=== PATIENT | female | born 1940 | race Caucasian/White ===

== ENCOUNTER 2016-05-09 13:05 | Inpatient (IN) | payer MEDICARE ==
--- NOTE | ~2016-05-09 | HP ---
Unit #: [id number] #: [id number] Patient: FELICITAS CHAND [id number] [address] [address] [id number] I MR#: [id number] NAME: FELICITAS CHAND. ROOM: 13422 Age: 76 Sex: F Admission Date: 05/09/2016 : 1940 Attending Physician: Giuseppe Stallworth M.D. Primary Care Physician: Chai Demarco M.D. HISTORY AND PHYSICAL ADMISSION DIAGNOSES 1. Acute hypoxemic respiratory failure. 2. Acute bronchitis. 3. History of CVA. 4. History of AFib. 5. History of CHF. 6. Hypertension. 7. Acute exacerbation of COPD. 8. History of peripheral vascular disease status post right carotid endarterectomy with patch. HISTORY OF PRESENT ILLNESS Ms. Felicitas Chand is a 76-year-old female with a past medical history of CVA, CHF, AFib, hypertension, peripheral vascular disease and COPD, who comes to the emergency room with the complaints of increasing weakness and cough along with some occasional nausea with some flu-like body aches for the last several days. Initial evaluation in the ER found patient with O2 sats of 86%. Flu was negative so was chest x-ray. Her white count was 13,000 and lactic acid was normal. The patient is being admitted for acute bronchitis along with the acute exacerbation of COPD and hypoxemic respiratory failure. She denies any chest pain. She denies any headache, dizziness, vomiting or diarrhea. The patient denies any abdominal pain. So, a 12-point review of systems on this patient basically negative except as above. PAST MEDICAL HISTORY History of AFib, history of CHF, history of CVA in the past, history of COPD, history of peripheral vascular disease, history of hypertension, dyslipidemia. She is a reformed smoker. PAST SURGICAL HISTORY Bilateral carotid endarterectomy, hysterectomy, fusion x2. FAMILY HISTORY Unremarkable. ALLERGIES Benazepril and sulfa. HOME MEDICATIONS I do not have in front of me but this will be clarified with the pharmacy and the patient will be restarted accordingly. PHYSICAL EXAMINATION Unit #: [id number] #: [id number] Patient: FELICITAS CHAND GENERAL APPEARANCE: She is a 76-year-old female, not in acute distress. VITAL SIGNS: BP 98/43. Heart rate 80. Respirations 17. Temperature 99.8. HEENT: Head is atraumatic. Pupils equal, round and reactive to light and accommodation. Extraocular muscles intact. Oropharynx clear. NECK: Supple. No mass. No JVD. No bruits. CHEST: Bilateral rhonchi. CARDIOVASCULAR: S1, S2. No murmurs. ABDOMEN: Soft, nontender, nondistended. EXTREMITIES: Lower extremities without any cyanosis, clubbing or edema. NEUROLOGIC: Patient grossly intact. No focal new deficits. DIAGNOSTIC STUDIES LABORATORY: White count 13,000. Chemistry significant for blood glucose of 125, GFR 42.1, sodium 134. IMAGING: Chest x-ray negative. ASSESSMENT AND PLAN 1. Acute hypoxemic respiratory failure. 2. Acute bronchitis versus community-acquired pneumonia. 3. Acute exacerbation of COPD. 4. History of AFib. 5. History of CHF. 6. Hypertension. 7. History of peripheral vascular disease status post bilateral carotid endarterectomy. 8. Acute kidney injury with questionable CKD. PLAN Continue DuoNeb q.4 hours. Start IV Levaquin. Ask Pharmacy to dose. Pulmonary consult with Dr. Clay who has seen the patient before. Also, we will gently hydrate. Followup on a.m. chemistry. Consider Nephrology evaluation. We will get the CT of the chest without contrast. Rule out pneumonia. Continue current O2. Keep O2 sats above 90. GI and DVT prophylaxis with some PPI and the patient is on Eliquis chronically. Dictated by Bk Duque/tanner TD: 05/09/2016 15:06 JOB #: [id number] HISTORY AND PHYSICAL X Giuseppe Stallworth MD HISTORY AND PHYSICAL
--- NOTE | ~2016-05-09 | EKG ---
PATIENT: FELICITAS RETANA UNIT #: [id number] Ventricular Rate: 74 BPM Atrial Rate: 74 BPM P-R Interval: 142 ms QRS Duration: 84 ms Q-T Interval: 426 ms QTC Calculation(Bezet): 472 ms P [place]: 37 degrees Calculated R [place]: -5 degrees Calculated T [place]: 2 degrees Diagnosis Line: Normal sinus rhythm Diagnosis Line: Normal ECG Diagnosis Line: When compared with ECG of 19-JUN-2014 12:28, Diagnosis Line: Vent. rate has decreased BY 37 BPM Diagnosis Line: Confirmed by JUAN FRANCISCO ESQUIVEL MD ([id number]) on 05/10/2016 Diagnosis Line: 7:02:41 AM INTERPRETING MD: ALVIN FERNANDEZ
--- NOTE | ~2016-05-09 | DS ---
Unit #: [id number] #: [id number] Patient: FELICITAS RETANA [id number] [place], [place] [address] [id number] I MR#: [id number] NAME: FELICITAS RETANA ROOM: 569 Age: 76 Sex: F Admission Date: 05/09/2016 : 1940 Discharge Date: 05/12/2016 Attending Physician: Giuseppe Stallworth M.D. Primary Care Physician: Chai Demarco M.D. DISCHARGE SUMMARY FINAL DIAGNOSES 1. Acute hypoxic respiratory failure, which is resolved. 2. Acute chronic obstructive pulmonary disease exacerbation. 3. Acute bronchitis. 4. Hypertension. 5. History of atrial fibrillation, on chronic anticoagulation therapy. 6. History of cerebrovascular accident. 7. Peripheral vascular disease status post right carotid endarterectomy with patch. 8. Reformed smoker. DISCHARGE MEDICATIONS 1. Medrol Dosepak. 2. Mucinex 600 mg p.o. b.i.d. 3. Hydralazine 25 mg b.i.d. 4. Continue rest of home medications. CONSULTATIONS DURING HOSPITALIZATION Dr. Mathew Anderson from pulmonary services. DIAGNOSTIC STUDIES LAB WORKUP ON DISCHARGE: Blood cultures are negative. BMP shows sodium 138, potassium 4.2, chloride 106, bicarb 23, BUN 26, creatinine 1.1. CBC shows WBC of 14, hemoglobin 10.2, hematocrit 31.7, platelet count 189. Lactic acid 1. Influenza A and B negative. IMAGING: CT scan of the chest was done on 05/09, which shows no acute findings. No active disease. Mild atelectasis in the posterior lower lobe. Emphysema in the bilateral upper lobes. No adenopathy. Small hiatal hernia was seen. HOSPITAL COURSE Felicitas is a 76-year-old female who was admitted [facility] to telemetry unit by my colleague, Dr. Stallworth, with acute hypoxic respiratory failure, acute bronchitis and acute COPD exacerbation. The patient had increasing weakness and cough, along with some nausea. Influenza was ruled out. The patient's oxygen in the ER was 86%. The patient's chest x-ray was negative for any pneumonia. The patient was started on IV Solu-Medrol, nebulizer treatment, bronchodilators. Dr. Anderson was consulted, and CT scan was done. Results are as above. The patient is doing very well at this time. Hypoxia has resolved, and her lungs are sounding much better. Her weakness has improved. The patient will be discharged home on above medications. Unit #: [id number] #: [id number] Patient: FELICITAS RETANA DISCHARGE PHYSICAL EXAMINATION VITAL SIGNS: Blood pressure 180/72, respiratory rate 18, pulse 69, temperature 98.4. RESPIRATORY: Chest has fair air entry bilaterally. CVS: S1, S2 positive. ABDOMEN: Soft. EXTREMITIES: Negative edema. DISCHARGE INSTRUCTIONS 1. Follow up with primary care provider in 1 week. 2. Check blood pressure at home and take log to primary care provider. 3. CBC to be done in 1 week to evaluate leukocytosis, which is most likely secondary to steroids. 4. Plan of care has been discussed with the patient at length. She does verbalize understanding. Dictated by... Marion Turner M.D. Jeff TD: 05/14/2016 07:58 JOB #: [id number] DISCHARGE SUMMARY X Marion Turner MD X DISCHARGE SUMMARY
--- NOTE | ~2016-05-09 | CR72 ---
[facility] A Service of [facility] & [facility] RADIOLOGY TEXT RESULTS PATIENT: FELICITAS RETANA LOCATION: [facility] 569-01 : [birth year] UNIT #: [id number] AGE: [address]: Giuseppe Stallworth MD SEX: F ORDER DR: [id number] [facility] [address] [place], [place] [address] [id number] I MR#: [id number] Acc #: [id number] NAME: FELICITAS RETANA : 1940 SEX: F STUDY DATE/TIME: 05/09/2016 12:06 UNIT: [facility] ROOM: [facility] STUDY DESCRIPTION: CR Chest Single View Portable Attending Physician: Giuseppe Stallworth M.D. Ordering Physician: Florian Alvarado M.D. Primary Care Physician: Chai Demarco M.D. MEDICAL IMAGING REPORT This report is preliminary unless electronic signature is present EXAM Chest x-ray 05/09/2016. HISTORY 76-year-old female in the ED complaining of shortness of air, weakness, cough, fatigue and congestion. Symptoms began yesterday. TECHNIQUE AP portable upright chest x-ray. FINDINGS The exam shows no active disease in the chest. Mild stable cardiomegaly. Mild scarring or atelectasis in lung bases. No acute pulmonary infiltrate or pleural effusion. No change since 06/19/2014. IMPRESSION No active disease. No change since 06/19/2014. Dictated by... Carlos Cheung M.D. THIS IS AN ELECTRONICALLY VERIFIED REPORT Carlos Cheung M.D. at 05/10/2016 8:40 AM JUAN/gonzalo TD: 05/09/2016 19:10 JOB #: [id number] MEDICAL IMAGING REPORT COPY
--- NOTE | ~2016-05-09 | CT57 ---
[facility] A Service of [facility] & [facility] RADIOLOGY TEXT RESULTS PATIENT: FELICITAS RETANA [facility]: [facility] [address] : [birth year] UNIT #: [id number] AGE: [address]: Giuseppe Stallworth MD SEX: F ORDER DR: [id number] [facility] [address] [place], [place] [address] [id number] I MR#: [id number] Acc #: [id number] NAME: FELICITAS RETANA. : 1940 SEX: F STUDY DATE/TIME: 05/09/2016 16:05 [facility]IT[facility]OM[facility] STUDY DESCRIPTION: CT Chest Wo Cont Attending Physician: Giuseppe Stallworth M.D. Ordering Physician: Giuseppe Stallworth M.D. Primary Care Physician: Chai Demarco M.D. MEDICAL IMAGING REPORT This report is preliminary unless electronic signature is present EXAM CT chest without contrast HISTORY Hypoxia for 2 days. Shortness of air. Bronchitis. TECHNIQUE This CT exam was performed with one or more of the following radiation dose reduction techniques: automatic exposure control, adjustment of mA and/or kV according to patient size, and iterative reconstruction. FINDINGS CT chest without contrast demonstrates minimal atelectasis in the posterior lower lobes. Mild emphysema in the bilateral upper lobes. Mild nodular scarring in the inferolateral right upper lobe is unchanged compared to 04/01/2014. Small hiatal hernia. Calcified mediastinal and left hilar nodes. No adenopathy. Normal caliber thoracic aorta. No pericardial thickening or effusion. Small cyst in the upper pole of the right kidney. IMPRESSION 1. No acute findings. No active disease. Mild atelectasis in the posterior lower lobes. Emphysema in the bilateral upper lobes. 2. No adenopathy. 3. Small hiatal hernia. Dictated by... Jez Edmondson M.D. THIS IS AN ELECTRONICALLY VERIFIED REPORT Jez Edmondson M.D. at 05/10/2016 3:20 PM CHASTITY/milvia STS. [facility] A Service of [facility] & [facility] RADIOLOGY TEXT RESULTS PATIENT: FELICITAS RETANA [facility] 569-01 : 38 UNIT #: [id number] AGE: [address]: Giuseppe Stallworth MD SEX: F ORDER DR: TD: 05/10/2016 09:10 JOB #: [id number] MEDICAL IMAGING REPORT COPY
--- NOTE | ~2016-05-09 | CO ---
Unit #: [id number] #: [id number] Patient: FELICITAS RETANA [id number] [place], [place] [address] [id number] I MR#: [id number] NAME: FELICITAS RETANA. ROOM: 569 Age: 76 Sex: F Admission Date: 05/09/2016 : 1940 Attending Physician: Giuseppe Stallworth M.D. Primary Care Physician: Chai Demarco M.D. Consultation Date: 05/09/2016 CONSULTATION REPORT REASON FOR CONSULT Hypoxia. HISTORY OF PRESENT ILLNESS This is a very pleasant 76-year-old female with a past medical history significant for hypertension, congestive heart failure, A-fib and stroke, who presented to the emergency room with complaints of profound weakness. The patient is oriented x3. However, she (1) easily while she is giving the story. Her story was inconsistent at times but apparently she was having some flu-like symptoms with cough and some low grade fever. She was feeling more dyspneic than usual and she was having some body aches. She denied any nausea, vomiting or diarrhea. She denied any chest pain. In the emergency room, the patient's saturation was found in the mid 80s on room air. She was tested negative for the flu and her chest x-ray showed no acute infiltrate. The patient doesn't wear oxygen at home and she doesn't smoke. PAST MEDICAL HISTORY 1. A-fib. 2. Congestive heart failure. 3. CVA. 4. COPD. 5. Peripheral vascular disease. 6. Hypertension. 7. Hyperlipidemia. PAST SURGICAL HISTORY 1. Bilateral carotid endarterectomy. 2. Hysterectomy. 3. Fusion x2. FAMILY HISTORY Hypertension. ALLERGIES Sulfa and benazepril. HOME MEDICATIONS Nursing are in the process of obtaining medications from her pharmacy. Unit #: [id number] #: [id number] Patient: FELICITAS RETANA PHYSICAL EXAMINATION GENERAL: The patient is pleasant, in no acute distress. VITAL SIGNS: Blood pressure 105/51, heart rate 83, respiratory rate 19, temperature 99.5. HEENT: Atraumatic, normocephalic. PERRLA, EOMI. NECK: Supple. No JVD, no lymphadenopathy. CHEST: Bilateral rhonchi and a few wheezing. HEART: S1, S2. No murmur, ABDOMEN: Soft, nontender. Bowel sounds positive. No hepatosplenomegaly. EXTREMITIES: No edema or cyanosis. SKIN: No rashes. TELESALES SPECIALIST: Awake, alert, oriented x3. No focal motor/sensory deficit. DIAGNOSTIC STUDIES LABORATORY: Creatinine 1.3, sodium 134, white blood count 13.5, hemoglobin 10.9. IMAGING: Chest x-ray - no acute infiltrate. ASSESSMENT 1. Acute hypoxic respiratory failure. 2. Acute exacerbation of chronic obstructive pulmonary disease. 3. Hypertension. 4. Congestive heart failure. 5. Atrial fibrillation. 6. Peripheral vascular disease. PLAN 1. The patient will be continued on oxygen and she will be titrated down as possible. 2. IV steroids and bronchodilators. 3. IV Levaquin, pneumonia dose, pending CT chest results. 4. No need for IV fluids. 5. Will test for the flu and other respiratory pathogens panel. 6. DVT prophylaxis. Dictated by... Bk Ambriz TD: 05/10/2016 05:14 JOB #: [id number] CONSULTATION REPORT X BELLA MARCANO MD X CONSULTATION REPORT
[2016-05-09 12:24] LABS: POC - CKMB 1.4 ng/mL (0.0-7.9); POC - TROPONIN <0.05 ng/mL (<=0.05)
[2016-05-09 12:28] LABS: BASOPHIL# 0.1 X10e3 (0-0.3); BASOPHIL% 0.4 % (0-2.5); HEMATOCRIT 33.9 % (35.0-45.0); HEMOGLOBIN 10.9 gm/dL (12.0-16.0); LYMPHOCYTE# 1.1 X10e3 (1.0-3.5); LYMPHOCYTE% 8.2 % (17.0-45.0); MEAN CELL VOLUME 85.6 FL (83-96); MEAN CORPUSCULAR HEMOGLOBIN 27.6 PG (28-34); MEAN CORPUSCULAR HGB CONC 32.2 g/dL (30-36); MEAN PLATELET VOLUME 9.6 FL (6.5-11.5); MONOCYTE# 1.2 X10e3 (0-1.0); MONOCYTE% 8.8 % (3.0-12.0); NEUTROPHIL# 11.2 X10e3 (1.5-7.1); NEUTROPHIL% 82.6 % (40-75); PLATELET COUNT 226 X10e3 (140-420); RED BLOOD COUNT 3.96 X10e (3.90-5.30); RED CELL DISTRIBUTION WIDTH 14.4 % (11.0-15.5); WHITE BLOOD COUNT 13.5 X10e3 (4.0-10.5)
[2016-05-09 12:32] LABS: DIFF IND NO
[2016-05-09 12:42] LABS: INFLUENZA A NEG (NEG); INFLUENZA B NEG (NEG)
[2016-05-09 13:01] LABS: ALBUMIN SERUM 3.7 g/dL (3.5-5.0); BILIRUBIN, DIRECT 0.2 mg/dL (0.0-0.2); BILIRUBIN,INDIRECT 0.5 mg/dL (0.0-0.9); BILIRUBIN,TOTAL 0.7 mg/dL (0.2-2.0); BUN/CREATININE RATIO 15.38; CALCIUM SERUM 9.4 mg/dL (8.4-10.2); CREATININE SERUM 1.3 mg/dL (0.6-1.4); GLOM FILT RATE Estimated 42.1 mL/min (>60); PROTEIN TOTAL SERUM 6.9 g/dL (6.0-8.3)
[~2016-05-09 13:05] MED LIST: AMBIEN PO; AMIODARONE HCL400 MG PO; APRESOLINE PO; APRESOLINE10 M1 PO; ASPIRIN PO; ASPIRIN81 MG PO; COLACE PO; COMBIVENT MININEB INH; COUMADIN2.5 MG PO; FLEXERIL PO; HCTZ PO; HYDRALAZINE HC100 MG PO; K-DUR20 ME2 PO; LIPITOR PO; LIPITOR80 MG PO; LORTAB 2.5/5001 TAB PO; LOVENOX PO; LOW DOSE ASPIRI81 M1 PO; LOZOL PO; LOZOL2.5 M1 PO; METOPROLOL TART25 MG PO; NASONEX17 GM; NORVASC PO; PERCOCET 10/3251 TAB PO; PERCOCET 5/321 UDTAB PO; PLAVIX PO; TOPROL XL PO; TYLENOL325 M1 PO; ZOFRAN PO; ZOLOFT PO; ZYRTEC10 M2 PO
[2016-05-09] MEDS ORDERED: PANTOPRAZOLE SO40 MG PO (13:27)
[2016-05-10 06:31] LABS: BASOPHIL% 0.1 % (0-2.5); HEMATOCRIT 31.7 % (35.0-45.0); HEMOGLOBIN 10.2 gm/dL (12.0-16.0); LYMPHOCYTE# 0.8 X10e3 (1.0-3.5); LYMPHOCYTE% 5.6 % (17.0-45.0); MEAN CELL VOLUME 86.2 FL (83-96); MEAN CORPUSCULAR HEMOGLOBIN 27.8 PG (28-34); MEAN CORPUSCULAR HGB CONC 32.2 g/dL (30-36); MEAN PLATELET VOLUME 9.5 FL (6.5-11.5); MONOCYTE# 0.3 X10e3 (0-1.0); MONOCYTE% 2.3 % (3.0-12.0); NEUTROPHIL# 12.9 X10e3 (1.5-7.1); PLATELET COUNT 189 X10e3 (140-420); RED BLOOD COUNT 3.67 X10e (3.90-5.30); RED CELL DISTRIBUTION WIDTH 14.2 % (11.0-15.5)
[2016-05-10 06:44] LABS: DIFF IND NO
[2016-05-10 06:50] LABS: URINE SOURCE CLEAN CATCH
[2016-05-10 07:05] LABS: URINE APPEARANCE CLEAR; URINE BILIRUBIN NEG (NEG); URINE BLOOD NEG (NEG); URINE COLOR YELLOW; URINE GLUCOSE NEG (NEG); URINE KETONE NEG (NEG); URINE LEUKOCYTE ESTERASE NEG (NEG); URINE NITRATE NEG (NEG); URINE PROTEIN NEG (NEG); URINE SPECIFIC GRAVITY 1.012 (1.003-1.035); URINE UROBILINOGEN 0.2 MG/DL (NEG)
[2016-05-10 07:06] LABS: BUN/CREATININE RATIO 23.63; CALCIUM SERUM 9.1 mg/dL (8.4-10.2); CREATININE SERUM 1.1 mg/dL (0.6-1.4); GLOM FILT RATE Estimated 51.1 mL/min (>60); POTASSIUM 4.2 mmol/L (3.5-5.1)
[2016-05-10 07:11] LABS: CULTURE INDICATED? NO
[2016-05-12] MEDS ORDERED: MUCINEX FAST-M1 EACH PO (13:11)
[2016-05-12] MEDS ORDERED: MEDROL DOSEPAK4 MG PO (13:12)
[2016-06-07] MEDS ORDERED: ACETAMINOPHEN PO (08:44)
[2016-06-07] MEDS ORDERED: LASIX20 MG PO (13:26)
[2016-06-07] MEDS ORDERED: ELIQUIS5 MG PO (13:26)
[2016-06-07] MEDS ORDERED: ZOLOFT50 MG PO (13:28)
[2016-06-07] MEDS ORDERED: HYDRALAZINE HCL50 MG PO (13:29)
[2016-06-07] MEDS ORDERED: TOPROL XL 50 MG50 MG PO (13:29)
[2016-06-07] MEDS ORDERED: DOCUSATE SODIU100 MG PO (13:29)
[2016-06-07] MEDS ORDERED: K-DUR20 ME2 PO (13:30)
[2016-06-07] MEDS ORDERED: COMBIVENT U/D3 M2 INH (13:42)
[2016-11-15] MEDS ORDERED: AMLODIPINE BESYL5 MG PO (20:40)
[2016-11-15] MEDS ORDERED: QUETIAPINE FUMA25 MG PO (20:40)
[2016-11-15] MEDS ORDERED: HYDROCODON-ACE1 EAC5 PO (21:05)
== END 2016-05-12 14:46 | disposition home or self-care (01) | DRG 189 ==
LOC: CED 13:05 → CEDOF 14:00 → C5C 18:32
PROVIDERS: Emergency Medicine; Hospitalist
DX: J96.01 Acute respiratory failure with hypoxia (principal); N17.9 Acute kidney failure, unspecified; I48.91 Unspecified atrial fibrillation; J44.0 Chronic obstructive pulmonary disease with (acute) lower respiratory infection; I50.9 Heart failure, unspecified; J44.1 Chronic obstructive pulmonary disease with (acute) exacerbation; J98.11 Atelectasis; I73.9 Peripheral vascular disease, unspecified; J20.9 Acute bronchitis, unspecified; I10 Essential (primary) hypertension; Z79.01 Long term (current) use of anticoagulants; Z86.73 Personal history of transient ischemic attack (TIA), and cerebral infarction without residual deficits; Z87.891 Personal history of nicotine dependence; Z88.2 Allergy status to sulfonamides; Z88.8 Allergy status to other drugs, medicaments and biological substances; Z90.710 Acquired absence of both cervix and uterus
CPT/HCPCS: 36415; 71010; 71250; 80048; 80076; 81003; 82553; 83605; 83880; 84484; 85025; 87040; 87804; 93005; 94640; 94760; 96374; 96375; 97116; 97163; 99285; G8978-GP; G8979-GP; J2405; J2920; J2930

== ENCOUNTER → 2016-06-07 | Outpatient (CLI) | payer MEDICARE, OTHER ==
[~2016-06-07] MED LIST changes: +ACETAMINOPHEN PO; +AMLODIPINE BESYL5 MG PO; +COMBIVENT U/D3 M2 INH; +DOCUSATE SODIU100 MG PO; +ELIQUIS5 MG PO; +HYDRALAZINE HCL50 MG PO; +HYDROCODON-ACE1 EAC5 PO; +LASIX20 MG PO; +MEDROL DOSEPAK4 MG PO; +MUCINEX FAST-M1 EACH PO; +PANTOPRAZOLE SO40 MG PO; +QUETIAPINE FUMA25 MG PO; +TOPROL XL 50 MG50 MG PO; +ZOLOFT50 MG PO
--- NOTE | ~2016-06-07 | EKG ---
PATIENT: FELICITAS RETANA UNIT #: [id number] Ventricular Rate: 61 BPM Atrial Rate: 61 BPM P-R Interval: 162 ms QRS Duration: 76 ms Q-T Interval: 434 ms QTC Calculation(Bezet): 436 ms P [place]: 50 degrees Calculated R [place]: -2 degrees Calculated T [place]: 10 degrees Diagnosis Line: Normal sinus rhythm Diagnosis Line: Normal ECG Diagnosis Line: Diagnosis Line: Confirmed by JUAN FRANCISCO ESQUIVEL MD ([id number]) on 06/08/2016 Diagnosis Line: 10:26:26 PM INTERPRETING MD: ALVIN FERNANDEZ
[2016-06-07 08:47] LABS: HEMATOCRIT 38.3 % (35.0-45.0); HEMOGLOBIN 12.2 gm/dL (12.0-16.0); MEAN CELL VOLUME 87.2 FL (83-96); MEAN CORPUSCULAR HEMOGLOBIN 27.9 PG (28-34); MEAN PLATELET VOLUME 8.5 FL (6.5-11.5); RED BLOOD COUNT 4.39 X10e (3.90-5.30); WHITE BLOOD COUNT 5.6 X10e3 (4.0-10.5)
[2016-06-07 08:59] LABS: PARTIAL THROMBOPLASTIN TIME 26.2 SECONDS (23.5-31.3); PROTHROMBIN TIME (PATIENT) 10.4 SECONDS (9.6-11.5)
[2016-06-07 09:11] LABS: BUN/CREATININE RATIO 22.22; CALCIUM SERUM 9.8 mg/dL (8.4-10.2); CREATININE SERUM 0.9 mg/dL (0.6-1.4); GLOM FILT RATE Estimated 61.3 mL/min (>60); POTASSIUM 4.4 mmol/L (3.5-5.1)
== END | disposition home or self-care (01) ==
LOC: CCVL 07:58
PROVIDERS: Internal Medicine Cardiovascular Disease
DX: I20.0 Unstable angina (principal); I10 Essential (primary) hypertension; I70.0 Atherosclerosis of aorta; Z88.2 Allergy status to sulfonamides; Z88.8 Allergy status to other drugs, medicaments and biological substances
CPT/HCPCS: 36415; 80048; 85027; 85610; 85730; 93005; C1769; C1887; C1894; J0153; J1644; J2250; J2370; J3010